=== PATIENT | female | born 1935 | race Caucasian/White ===

== ENCOUNTER 2018-05-30 08:33 | Day surgery (SDC) | payer MEDICARE, BC ==
[~2018-05-30 08:33] MED LIST: LIDOCAINE HCL 1% MPF 30 SOL ONE; PROPOFOL 500 MG/50 ML EMU IV ONE
[2018-05-30 10:46] VITALS: PULSE 68; RESP 14; TEMP 97.1; O2SAT 99
[2018-05-30 10:55] VITALS: BP 173/82
== END 2018-05-30 11:12 | disposition home or self-care (01) | DRG 951 ==
LOC: SURG 08:33
PROVIDERS: ATTEND Surgery
DX: Z12.11 Encounter for screening for malignant neoplasm of colon (principal); K62.5 Hemorrhage of anus and rectum; K57.32 Diverticulitis of large intestine without perforation or abscess without bleeding; Z86.010 Personal history of colon polyps; K63.89 Other specified diseases of intestine; D12.3 Benign neoplasm of transverse colon
CPT/HCPCS: J2001; J2704